=== PATIENT | male | born 1950 | race Caucasian/White ===

== ENCOUNTER 2020-07-23 08:23 | Emergency (ER) | payer OTHER ==
[2020-07-23 08:30] VITALS: BMI 16.5
[2020-07-23 09:18] LABS: BASO % 1.1 % (0-2.0); EOS % 1.2 % (0-4.5); HEMOGLOBIN 13.4 GM/dL (11.7-16.9); LYMPH % 23.4 % (8-40); MCH 31.1 pg (25.7-33.7); MCHC 32.7 g/dl (32.0-35.9); MEAN CELL VOLUME 95.2 fl (80-96); MEAN PLT VOLUME 8.5 fl (7.5-11.1); MONO % 12.1 % (3.8-10.2); NEUT % 62.2 % (42.8-82.8); PLATELET COUNT 235 K/MM3 (134-434); RBC 4.31 M/mm3 (4.00-5.60); RDW 14.1 % (11.9-15.9); WHITE BLOOD COUNT 14.6 K/mm3 (4.0-10.0)
[2020-07-23 09:48] LABS: ALBUMIN 3.7 g/dl (3.4-5.0); BLOOD UREA NITROGEN 13.8 mg/dL (7-18); CALCIUM 9.7 mg/dL (8.5-10.1)
[2020-07-23 09:52] LABS: BILIRUBIN,TOTAL 0.6 mg/dL (0.2-1); CREATININE 0.8 mg/dL (0.55-1.3); TOT PROT 6.8 g/dl (6.4-8.2)
[2020-07-23 13:20] VITALS: BP 110/78; PULSE 80; TEMP 98.6
== END 2020-07-23 13:21 | disposition home or self-care (01) ==
LOC: JER 08:23
DX: G89.4 Chronic pain syndrome (principal); R06.02 Shortness of breath; G50.1 Atypical facial pain
CPT/HCPCS: 36415; 70486-TC; 71046-TC-FY; 80053; 85025; 93005; 93010; 99284-25

== ENCOUNTER 2021-04-09 13:05 | Observation (INO) | payer OTHER ==
[2021-04-09 13:41] VITALS: BMI 17.8
[2021-04-09] MEDS ORDERED: SODIUM CHLORIDE 0.9% 500 ML INFUS.BAG IV ONE (15:10)
[2021-04-09] MEDS ORDERED: IBUPROFEN 600 MG TABLET (FP) PO ONE ×2 (15:43→15:51)
[2021-04-09 15:45] LABS: BASO % 0.7 % (0-2.0); EOS % 0.8 % (0-4.5); HEMATOCRIT 39.7 % (35.4-49); HEMOGLOBIN 13.3 GM/dL (11.7-16.9); LYMPH % 16.1 % (8-40); MCHC 33.6 g/dl (32.0-35.9); MEAN CELL VOLUME 92.4 fl (80-96); MEAN PLT VOLUME 8.5 fl (7.5-11.1); MONO % 8.2 % (3.8-10.2); NEUT % 74.2 % (42.8-82.8); PLATELET COUNT 240 10^3/uL (134-434); RBC 4.29 M/mm3 (4.00-5.60); RDW 13.8 % (11.9-15.9)
[2021-04-09 16:02] LABS: CHLORIDE 104 mmol/L (98-107); SODIUM 141 mmol/L (136-145)
[2021-04-09 16:04] LABS: ALBUMIN 3.8 g/dl (3.4-5.0)
[2021-04-09 16:05] LABS: ANION GAP 6 MMOL/L (8-16); BLOOD UREA NITROGEN 11.7 mg/dL (7-18); CO2 31 mmol/L (21-32); GLUCOSE,RANDOM 94 mg/dL (74-106); MAGNESIUM 2.4 mg/dL (1.8-2.4)
[2021-04-09 16:09] LABS: CREATININE 0.7 mg/dL (0.55-1.3); SGOT/AST 20 U/L (15-37); SGPT/ALT 24 U/L (13-61)
[2021-04-09 16:10] LABS: BILIRUBIN,TOTAL 0.5 mg/dL (0.2-1); TOT PROT 7.3 g/dl (6.4-8.2)
[2021-04-09 16:11] LABS: ALK PHOS 101 U/L (45-117)
[2021-04-09] MEDS ORDERED: ALBUTEROL SO4 HFA INHALER IH PRN (18:27)
[2021-04-09] MEDS ORDERED: fentaNYL 25mcg/hr PATCH.TD72 TD PRN (18:27)
[2021-04-09] MEDS ORDERED: FENTANYL PATCH WASTE MC PRN (18:27)
[2021-04-09] MEDS ORDERED: ALBUTEROL SO4 0.083% IH SOL 2.5 MG/3 ML VIAL.NEB. NEB PRN (18:27)
[2021-04-09] MEDS: SODIUM CHLORIDE 1,000 ML IV SCH ×2 (20:15→22:44)
[2021-04-09 20:56] LABS: URINE APPEARANCE CLEAR; URINE BILIRUBIN NEGATIVE (NEGATIVE); URINE COLOR YELLOW; URINE GLUCOSE (UA) NEGATIVE (NEGATIVE); URINE KETONE NEGATIVE (NEGATIVE); URINE LEUK ESTERASE NEGATIVE (NEGATIVE); URINE NITRITE NEGATIVE (NEGATIVE); URINE PROTEIN TRACE (NEGATIVE)
[2021-04-09] MEDS ORDERED: MIRTAZAPINE 15 MG TABLET (FP) PO SCH (22:00)
[2021-04-09] MEDS: clonazePAM 0.5 MG TABLET PO SCH (22:39)
[2021-04-09] MEDS: PREGABALIN 50 MG CAPSULE PO SCH (22:39)
[2021-04-10 06:21] VITALS: BP 111/60; PULSE 53; TEMP 98.2
[2021-04-10] MEDS: PREGABALIN 50 MG CAPSULE PO SCH ×2 (06:36→13:29)
[2021-04-10 06:40] LABS: BASO % 0.6 % (0-2.0); EOS % 2.4 % (0-4.5); HEMATOCRIT 34.5 % (35.4-49); HEMOGLOBIN 11.8 GM/dL (11.7-16.9); MCH 31.9 pg (25.7-33.7); MCHC 34.1 g/dl (32.0-35.9); MEAN CELL VOLUME 93.5 fl (80-96); MEAN PLT VOLUME 9.2 fl (7.5-11.1); MONO % 12.1 % (3.8-10.2); NEUT % 51.9 % (42.8-82.8); PLATELET COUNT 203 10^3/uL (134-434); RBC 3.69 M/mm3 (4.00-5.60); RDW 14.1 % (11.9-15.9); WHITE BLOOD COUNT 7.4 K/mm3 (4.0-10.0)
[2021-04-10 07:04] LABS: BLOOD UREA NITROGEN 12.2 mg/dL (7-18); CALCIUM 8.3 mg/dL (8.5-10.1)
[2021-04-10 07:05] LABS: MAGNESIUM 2.2 mg/dL (1.8-2.4)
[2021-04-10 07:08] LABS: CREATININE 0.6 mg/dL (0.55-1.3); PHOSPHOROUS 2.7 mg/dL (2.5-4.9)
[2021-04-10 07:09] LABS: BILIRUBIN,TOTAL 0.7 mg/dL (0.2-1); TOT PROT 5.8 g/dl (6.4-8.2)
[2021-04-10] MEDS: clonazePAM 0.5 MG TABLET PO SCH (09:25)
[2021-04-10] MEDS ORDERED: DULoxetine HCL 30 MG CAPSULE.DR PO SCH (10:00)
[2021-04-10] MEDS ORDERED: ENOXAPARIN NA (PORCINE) 40 MG/0.4 ML DISP.SYRIN SQ SCH (10:00)
[2021-04-10] MEDS ORDERED: MECLIZINE HCL 25 MG TABLET (FP) PO PRN (10:52)
== END 2021-04-10 14:07 | disposition home or self-care (01) ==
LOC: JER 13:05 → INTOOBSV 19:19 → UNDOADMOB 19:19 → JERBED 19:19 → J4W 21:41 → JERBED 04-10 07:34
PROVIDERS: ATTEND Nurse Practitioner Acute Care
PROC: 3E0337Z Introduction of Electrolytic and Water Balance Substance into Peripheral Vein, Percutaneous Approach (ICD-10-PCS; principal; 2021-04-10)
PROC: 3E023GC Introduction of Other Therapeutic Substance into Muscle, Percutaneous Approach (ICD-10-PCS; 2021-04-10)
DX: Z20.822 Contact with and (suspected) exposure to COVID-19 (principal); J32.9 Chronic sinusitis, unspecified; G89.4 Chronic pain syndrome; J44.9 Chronic obstructive pulmonary disease, unspecified; M54.9 Dorsalgia, unspecified; Z86.16 Personal history of COVID-19; F41.8 Other specified anxiety disorders; Z87.891 Personal history of nicotine dependence; Z29.9 Encounter for prophylactic measures, unspecified; Z88.0 Allergy status to penicillin; Z88.2 Allergy status to sulfonamides; M19.90 Unspecified osteoarthritis, unspecified site; R42 Dizziness and giddiness
CPT/HCPCS: 36415; 70450-TC; 70496-TC; 70498-TC; 70551-TC; 71045-TC-FY; 80053; 81003; 82550; 83735; 84100; 84484; 85025; 93005; 93010; 93880-TC; 96360; 96372; 97116-GP; 97161-GP; 99285-25; C9803; G0378; Q9967; U0003; U0005

== ENCOUNTER 2021-09-23 13:24 | Inpatient (IN) | payer OTHER ==
[2021-09-23] MEDS ORDERED: morphine SULFATE 4 MG/ML VIAL IVPUSH ONE (13:42)
[2021-09-23] MEDS ORDERED: SODIUM CHLORIDE 0.9% 500 ML INFUS.BAG IV ONE (13:42)
[2021-09-23] MEDS ORDERED: ACETAMINOPHEN 1000 MG/100 ML BAG IVPB ONE (13:51)
[2021-09-23] MEDS ORDERED: ACETAMINOPHEN INJECTION 100 ML IVPB ONE (14:37)
[2021-09-23] MEDS ORDERED: morphine SULFATE 4 MG/ML VIAL ONE (14:37)
[2021-09-23 15:01] LABS: BASO % 0.9 % (0-2.0); EOS % 1.3 % (0-4.5); HEMATOCRIT 38.5 % (35.4-49); HEMOGLOBIN 12.2 GM/dL (11.7-16.9); MCH 29.6 pg (25.7-33.7); MCHC 31.6 g/dl (32.0-35.9); MEAN CELL VOLUME 93.7 fl (80-96); MEAN PLT VOLUME 8.9 fl (7.5-11.1); MONO % 10.8 % (3.8-10.2); PLATELET COUNT 273 10^3/uL (134-434); RBC 4.11 M/mm3 (4.00-5.60); RDW 14.8 % (11.9-15.9); WHITE BLOOD COUNT 14.3 K/mm3 (4.0-10.0)
[2021-09-23 15:09] LABS: PROTHROMBIN TIME (PATIENT) 11.5 SEC (9.7-13.0)
[2021-09-23 15:12] LABS: EPI CELLS 12 /uL (0-25.1); HYALINE CASTS 6 /uL (0-3.1); URINE APPEARANCE CLEAR; URINE BACTERIA 189 /uL (0-1359); URINE BILIRUBIN NEGATIVE (NEGATIVE); URINE COLOR YELLOW; URINE GLUCOSE (UA) NEGATIVE (NEGATIVE); URINE KETONE NEGATIVE (NEGATIVE); URINE LEUK ESTERASE 2+ (NEGATIVE); URINE NITRITE NEGATIVE (NEGATIVE); URINE PROTEIN NEGATIVE (NEGATIVE); URINE RBC 7 /uL (0-23.9); URINE UROBILINOGEN 0.2 mg/dL (0.2-1.0); URINE WBC 92 /uL (0-25.8)
[2021-09-23 15:18] LABS: CALCIUM 9.4 mg/dL (8.5-10.1)
[2021-09-23 15:19] LABS: ALBUMIN 3.8 g/dl (3.4-5.0); BLOOD UREA NITROGEN 9.2 mg/dL (7-18)
[2021-09-23 15:21] LABS: CREATININE 0.8 mg/dL (0.55-1.3)
[2021-09-23 15:23] LABS: BILIRUBIN,TOTAL 0.5 mg/dL (0.2-1)
[2021-09-23 15:27] LABS: ACTIVATED PTT 31.4 SECONDS (25.2-36.5)
[2021-09-23] MEDS ORDERED: MEROPENEM 1 GM in DEXTROSE 5%-WATER 100 ML IVPB ONE ×2 (15:37→15:40)
[2021-09-23] MEDS ORDERED: MEROPENEM 1 GM VIAL (RESTRICTED TO ID) IVPB ONE (17:38)
[2021-09-23] MEDS ORDERED: SODIUM CHLORIDE 1,000 ML IV STA (18:27)
[2021-09-23] MEDS ORDERED: FENTANYL PATCH WASTE MC PRN (18:44)
[2021-09-23] MEDS ORDERED: ALBUTEROL SO4 HFA INHALER IH PRN (18:44)
[2021-09-23] MEDS ORDERED: FLUTICASONE/UMECLIDIN/VILANTER(200-62.5-25 TRELEGY ELLIPTA) INAHLER IH SCH (18:45)
[2021-09-23] MEDS ORDERED: HYDROmorphone HCl 2 MG/ML VIAL IVPUSH SCH (19:00)
[2021-09-23] MEDS ORDERED: FENTANYL PATCH WASTE TD PRN (19:25)
[2021-09-23] MEDS ORDERED: SODIUM CHLORIDE 1,000 ML IV SCH (19:30)
[2021-09-23] MEDS ORDERED: HYDROmorphone HCl 2 MG/ML VIAL IVPUSH PRN (19:44)
[2021-09-23] MEDS ORDERED: MIRTAZAPINE 15 MG TABLET (FP) PO SCH (22:00)
[2021-09-23] MEDS ORDERED: clonazePAM 0.5 MG TABLET PO SCH (22:00)
[2021-09-24] MEDS ORDERED: PREGABALIN 50 MG CAPSULE ONE ×2 (00:31→04:37)
[2021-09-24] MEDS ORDERED: DULoxetine HCL 30 MG CAPSULE.DR PO ONE ×2 (00:32→10:33)
[2021-09-24] MEDS ORDERED: MIRTAZAPINE 15 MG TABLET (FP) ONE (00:32)
[2021-09-24] MEDS ORDERED: clonazePAM 0.5 MG TABLET ONE (00:32)
[2021-09-24] MEDS: PREGABALIN 50 MG CAPSULE PO SCH ×3 (01:03→14:25)
[2021-09-24] MEDS: DULoxetine HCL 30 MG CAPSULE.DR PO SCH ×2 (01:06→10:34)
[2021-09-24 06:48] LABS: BASO % 0.7 % (0-2.0); EOS % 2.6 % (0-4.5); HEMATOCRIT 32.7 % (35.4-49); HEMOGLOBIN 11.1 GM/dL (11.7-16.9); LYMPH % 22.7 % (8-40); MCH 31.6 pg (25.7-33.7); MCHC 33.9 g/dl (32.0-35.9); MEAN PLT VOLUME 8.6 fl (7.5-11.1); PLATELET COUNT 205 10^3/uL (134-434); RBC 3.52 M/mm3 (4.00-5.60); RDW 14.8 % (11.9-15.9); WHITE BLOOD COUNT 7.4 K/mm3 (4.0-10.0)
[2021-09-24 07:01] LABS: CALCIUM 8.3 mg/dL (8.5-10.1)
[2021-09-24 07:02] LABS: BLOOD UREA NITROGEN 6.1 mg/dL (7-18); MAGNESIUM 2.1 mg/dL (1.8-2.4)
[2021-09-24 07:05] LABS: CREATININE 0.6 mg/dL (0.55-1.3)
[2021-09-24 07:06] LABS: BILIRUBIN,TOTAL 0.6 mg/dL (0.2-1)
[2021-09-24 07:14] LABS: ALBUMIN 2.7 g/dl (3.4-5.0); TOT PROT 5.6 g/dl (6.4-8.2)
[2021-09-24 12:25] VITALS: BMI 19.6
[2021-09-24] MEDS ORDERED: CEFTRIAXONE 2 GM in DEXTROSE 5%-WATER 100 ML IVPB SCH (14:00)
[2021-09-24] MEDS ORDERED: DEXTROSE 5%-WATER 100 ML IVPB ONE (14:27)
[2021-09-24 18:48] VITALS: BP 128/65; PULSE 64; TEMP 98.2
[2021-09-25] MEDS ORDERED: fentaNYL 12mcg/hr PATCH.TD72 TD SCH (10:00)
[2021-09-25] MEDS ORDERED: fentaNYL 25mcg/hr PATCH.TD72 TD SCH (10:00)
== END 2021-09-24 20:10 | disposition short-term general hospital (02) | DRG 376 ==
LOC: JER 13:24 → JERBED 18:02 → J7W 09-24 10:51
PROVIDERS: ADMIT Internal Medicine; ATTEND Internal Medicine
DX: D49.0 Neoplasm of unspecified behavior of digestive system (principal); K81.9 Cholecystitis, unspecified; K82.8 Other specified diseases of gallbladder; J44.9 Chronic obstructive pulmonary disease, unspecified; M54.30 Sciatica, unspecified side; J61 Pneumoconiosis due to asbestos and other mineral fibers; D72.829 Elevated white blood cell count, unspecified; F41.8 Other specified anxiety disorders
CPT/HCPCS: 36415; 71046-TC-FY; 71275-TC; 74174-TC; 76705-TC; 80053; 81003; 82550; 83690; 83735; 84100; 84484; 85025; 85610; 85730; 86301; 86850; 86900; 86901; 87040; 87086; 93005; 93010; 99285-25; C9803-CS; Q9967; U0003; U0005